=== PATIENT | male | born 1945 | race Caucasian/White ===

== ENCOUNTER 2019-12-02 15:47 | Outpatient (REF) | payer MEDICARE, SELFPAY ==
[2019-12-02 16:32] LABS: Hematocrit 37.2 % (42-52); Hemoglobin 11.7 g/dl (14.0-18.0); Mean Corpuscular HGB Conc 31.5 g/dl (31.0-36.0); Mean Corpuscular Volume 92.3 fL (80-98); Mean Platelet Volume 8.6 fL (9.4-12.4); Platelet Count 283 X10*3/uL (160-400); Red Blood Count 4.03 X10*6/uL (4.60-5.80); Red Cell Distribution Width 14.8 % (11.0-16.0); White Blood Count 7.8 X10*3/uL (4.8-10.8)
[2019-12-02 17:10] LABS: C Reactive Protein 4.17 mg/dL (< or = 0.50)
[2019-12-02 17:12] LABS: Erythrocyte Sedimentation Rate 77 MM/HR (0-15)
[2019-12-03 04:09] LABS: HBsAGNum1 0.32 S/CO (0.00-0.99); Hepatitis B Surface Antigen Negative (Negative)
== END 2019-12-02 15:48 | disposition home or self-care (01) ==
LOC: HO.LAB 15:47
PROVIDERS: PCP Nurse Practitioner Family; Visit Provider Internal Medicine Gastroenterology
DX: K51.90 Ulcerative colitis, unspecified, without complications (principal)
CPT/HCPCS: 36415; 85027; 85652; 86140; 87340

== ENCOUNTER 2019-12-03 11:01 | Outpatient (REF) | payer MEDICARE, SELFPAY | END 2019-12-03 11:02 | disposition home or self-care (01) | LOC: HO.LAB 11:01 | PROVIDERS: Visit Provider Internal Medicine Gastroenterology | DX: K51.90 Ulcerative colitis, unspecified, without complications (principal) | CPT/HCPCS: 86481 ==